=== PATIENT | female | born 1945 | race Caucasian/White ===

== ENCOUNTER 2017-10-26 06:20 | Day surgery (SDC) | payer OTHER, BC ==
[2017-10-23 10:05] VITALS: BMI 24.5
[2017-10-26] MEDS ORDERED: PROPOFOL 20 ML ONE ×3 (10:47→14:04)
[2017-10-26] MEDS ORDERED: MIDAZOLAM HCL 2 MG/2 ML SINGLE DOSE VIAL ONE ×2 (10:48→13:26)
[2017-10-26] MEDS ORDERED: LIDOCAINE HCL/PF 2% SDV 5ML VIAL ONE ×2 (11:09→13:26)
[2017-10-26] MEDS ORDERED: DEXAMETHASONE SOD PHOSPHATE 4 MG/1 ML VIAL ONE ×2 (11:09→12:48)
[2017-10-26] MEDS ORDERED: ceFAZolin SODIUM 1 GM VIAL ONE ×2 (12:48→15:56)
[2017-10-26] MEDS ORDERED: TRANEXAMIC ACID 1000 MG/10 ML VIAL ONE (12:48)
[2017-10-26] MEDS ORDERED: VANCOMYCIN 1,000 MG VIAL (RESTRICTED TO ID ONLY) ONE (12:48)
[2017-10-26] MEDS ORDERED: KETOROLAC TROMETHAMINE 30 MG/1 ML VIAL ONE (14:21)
[2017-10-26] MEDS ORDERED: oxyCODONE HCL 5 MG TABLET PO PRN ×2 (15:06→16:03)
[2017-10-26] MEDS ORDERED: ONDANSETRON 4 MG/2 ML VIAL IVPUSH PRN ×2 (15:06→16:03)
[2017-10-26] MEDS ORDERED: LACTATED RINGERS SOLUTION 1,000 ML IV SCH (15:15)
[2017-10-26] MEDS ORDERED: IBUPROFEN 600 MG TABLET (FP) PO PRN (16:03)
[2017-10-26] MEDS ORDERED: IBUPROFEN 800 MG/8 ML IJ IVPB PRN (16:03)
[2017-10-26] MEDS ORDERED: ceFAZolin 2 GRAM PREMIX BAG IVPB ONE (16:04)
[2017-10-26] MEDS ORDERED: ELECTROLYTE-148 SOLN 1,000 ML IV SCH (16:15)
[2017-10-26 17:30] VITALS: BP 152/74; PULSE 64; TEMP 97.8
--- NOTE | 2017-10-27 12:25 | OP ---
DATE OF OPERATION: 10/26/2017 PREOPERATIVE DIAGNOSIS: Thickened endometrium, endometrial mass, rule out malignancy. POSTOPERATIVE DIAGNOSIS: Thickened endometrium, endometrial mass, rule out malignancy, large submucous leiomyoma. PROCEDURE: Hysteroscopy, resection of the large submucous myoma, and dilation and curettage. SURGEON: John Carey MD ANESTHESIA: General. ANESTHESIOLOGIST: Dr. Martinez ESTIMATED BLOOD LOSS: 200 mL. DESCRIPTION OF PROCEDURE: The patient was taken to the operating room. Under adequate general anesthesia, examination under anesthesia revealed external genitalia to be normal. Vagina was normal. Cervix was clean. No lesion. Uterus was slightly increased in size. Adnexa, no masses were palpable. Then with a weighted speculum in the vagina, anterior lip of the cervix was grasped with a single-tooth tenaculum. Cervix was gradually dilated with Hegar dilator and then the Symphion resectoscope was introduced. Visualization of the endometrial cervical showed a large 4-cm calcified myoma occurred in the cavity. The endometrium appeared to be atrophic. Both cornual regions were difficult to visualize because of the fibroid occupying the whole cavity. Then with the Symphion resector, the myoma was resected partially to the base because the base was very white and thick. Was not able to remove the base but the fibroid was resected then the cavity was suctioned and irrigated. No active bleeding was seen. The patient tolerated the procedure well and left the OR in good condition. JOHN CAREY M.D. [id number]
--- NOTE | 2017-10-28 18:20 | PATH ---
Surgical Pathology Report Patient Name: KEN SHAFER [facility]. Rec. #: [id number] /Age/Gender: 1945 (Age: 71) / F Account: [id number] Location: [facility] SURGICAL Taken: 10/26/2017 Received: 10/27/2017 Reported: 10/28/2017 Physicians: John Carey M.D. Specimen(s) Received UTERINE FIBROIDS Clinical History Endometrial thickening, fibroid uterus Final Diagnosis UTERINE FIBROIDS, EXCISION: ATROPHIC ENDOMETRIUM AND SUBJACENT SMOOTH MUSCLE NODULE WITH FOCAL DEGENERATIVE CHANGE, CONSISTENT WITH LEIOMYOMA. Electronically Signed Cate Foreman M.D. Gross Description Received in formalin labeled "fibroid uterus," is a 2 g, 3.0 x 2.1 x 0.3 cm aggregate of tolbert, firm to rubbery and soft tissue fragments admixed with blood clot. The formalin is filtered and the specimen is entirely submitted in 2 cassettes. /10/27/2017 saudi/10/27/2017
== END 2017-10-26 17:20 | disposition home or self-care (01) ==
LOC: JASU-SURG 06:20
PROVIDERS: ATTEND Obstetrics & Gynecology
PROC: 0UJD8ZZ Inspection of Uterus and Cervix, Via Natural or Artificial Opening Endoscopic (ICD-10-PCS; 2017-10-26)
PROC: 0UB98ZZ Excision of Uterus, Via Natural or Artificial Opening Endoscopic (ICD-10-PCS; principal; 2017-10-26 13:00)
PROC: 0UDB7ZX Extraction of Endometrium, Via Natural or Artificial Opening, Diagnostic (ICD-10-PCS; 2017-10-26 13:00)
DX: N85.00 Endometrial hyperplasia, unspecified (principal); D25.0 Submucous leiomyoma of uterus
CPT/HCPCS: 88307-TC; 94760